=== PATIENT | female | born 1935 | race African-American/Black ===

== ENCOUNTER 2020-10-28 06:57 | Emergency (ER) | payer BC, OTHER ==
[~2020-10-28] VITALS: Ht 162.6 cm; Wt 69.4 kg
[2020-10-28 10:26] LABS: Basophils # (auto) 0 10 ^3/uL (0-0.2); Basophils % (auto) 0.4 % (0.0-2.0); Eosinophils # (auto) 0.2 10 ^3/uL (0-0.8); Eosinophils % (auto) 2.3 % (0.0-7.0); Hematocrit 37.5 % (36.0-46.0); Hemoglobin 12.2 g/dL (12.2-16.2); Lymphocytes # (auto) 1.9 10 ^3/uL (0.4-5.4); Lymphocytes % (auto) 24.5 % (10.0-50.0); Mean Corpuscular Hemoglobin 29.4 pg (28.0-32.0); Mean Corpuscular Hgb Conc. 32.4 g/dL (32.0-36.0); Mean Corpuscular Volume 90.9 fL (80.0-100.0); Monocytes # (auto) 0.6 10 ^3/uL (0-1.3); Monocytes % (auto) 7.4 % (0.0-12.0); Neutrophils % (auto) 65.4 % (37.0-80.0); Nucleated Red Blood Cells % 0.1 %; Platelet Count (auto) 237 10^3/uL (140-450); Red Blood Cells 4.13 10^6/uL (4.0-5.20); Red Cell Distribution Width 13.6 % (11.8-14.3); White Blood Cell 7.7 10^3/uL (4.4-10.8)
[2020-10-28 10:45] LABS: Albumin 3.8 g/dL (3.4-5.0); Anion Gap 2 (5-15); Blood Urea Nitrogen 15 mg/dL (7-18); Calcium 9.9 mg/dL (8.5-10.1); Carbon Dioxide 27 mmol/L (21-32); Chloride 112 mmol/L (98-107); Glucose 97 mg/dL (74-106); Sodium 141 mmol/L (136-145)
[2020-10-28 10:53] LABS: Alanine Aminotransferase 18 U/L (13-56); Alkaline Phosphatase 85 U/L (45-117); Aspartate Aminotransferase 12 U/L (15-37); BUN/Creatinine Ratio 12.6; Bilirubin, Total 0.4 mg/dL (0.2-1.0); GFR African American 55 mL/min; GFR Non-African American 46 mL/min; Total Protein 7.8 g/dL (6.4-8.2)
[2020-10-28 11:01] LABS: INR 1.05 (0.9-1.15); Partial Thromboplastin Time 23.7 sec (23.0-31.2)
[2020-10-28 11:17] LABS: Urine Bacteria FEW /hpf (None Seen); Urine Blood Negative /uL (Negative); Urine Mucus FEW (None Seen); Urine Specific Gravity 1.017 (1.001-1.035); Urine WBC 2 /hpf (0 - 5)
[2020-10-28 12:05] VITALS: BP 133/64
== END 2020-10-28 12:10 | disposition home or self-care (01) ==
LOC: ER 06:57
DX: S09.90XA Unspecified injury of head, initial encounter (principal); I10 Essential (primary) hypertension; N39.0 Urinary tract infection, site not specified; W18.11XA Fall from or off toilet without subsequent striking against object, initial encounter; Y93.89 Activity, other specified; Y92.091 Bathroom in other non-institutional residence as the place of occurrence of the external cause; Y99.8 Other external cause status
CPT/HCPCS: 36415; 70450; 71045; 72192; 80053; 81001; 84484; 85025; 85610; 85730; 93005

== ENCOUNTER 2023-08-05 15:09 | Inpatient (IN) | payer BC ==
[~2023-08-05] VITALS: Ht 160 cm; Wt 62.4 kg
[2023-08-05] MEDS ORDERED: BRIM0.2S17 EACHEYE (17:11)
[2023-08-05] MEDS ORDERED: BIMA0.01 EACHEYE (17:11)
[2023-08-05 17:15] VITALS: BP_SYST 120; BP_SYST 138; BP_DIAS 58; BP_DIAS 60; PULSE 73; RESP 17; TEMP 97.8; TEMP 98; O2SAT 94
[2023-08-05 17:18] VITALS: BP 138/60; PULSE 58; RESP 19; TEMP 98; O2SAT 100
[2023-08-05] MEDS ORDERED: ACETAMINOPHEN 325 MG TAB PO PRN (18:00)
[2023-08-05] MEDS ORDERED: ONDANSETRON HCL 4 MG/2 ML VIAL IV PRN (18:00)
[2023-08-05] MEDS ORDERED: MORPHINE SULFATE INJ 2 MG/ml SYRG IV PRN (18:00)
[2023-08-05] MEDS ORDERED: NITROGLYCERIN 0.4 MG SL TAB SL PRN (18:00)
[2023-08-05 18:20] VITALS: PULSE 68; RESP 18
[2023-08-05 20:00] VITALS: PULSE 64; PULSE 70; RESP 18; TEMP 36.7; O2SAT 95
[2023-08-05 22:00] VITALS: BP 100/48; PULSE 69; RESP 18; TEMP 98; O2SAT 98
[2023-08-06 08:00] VITALS: RESP 18; TEMP 36.7; O2SAT 95
[2023-08-06 09:00] VITALS: BP 97/56; PULSE 78; RESP 16; TEMP 98.7; O2SAT 100
[2023-08-06 09:53] LABS: Basophils # (auto) 0 10 ^3/uL (0-0.2); Basophils % (auto) 0.3 % (0.0-2.0); Eosinophils # (auto) 0.2 10 ^3/uL (0-0.8); Neutrophils # (auto) 3.6 10 ^3/uL (1.6-8.6); Nucleated Red Blood Cells % 0.1 %; Red Cell Distribution Width 14.5 % (11.8-14.3); White Blood Cell 5.9 10^3/uL (4.4-10.8)
[2023-08-06 09:55] LABS: Eosinophils % (auto) 2.8 % (0.0-7.0); Hematocrit 40.3 % (36.0-46.0); Hemoglobin 12.6 g/dL (12.2-16.2); Lymphocytes # (auto) 1.4 10 ^3/uL (0.4-5.4); Lymphocytes % (auto) 24.3 % (10.0-50.0); Mean Corpuscular Hemoglobin 30.1 pg (28.0-32.0); Mean Corpuscular Hgb Conc. 31.4 g/dL (32.0-36.0); Mean Corpuscular Volume 96.1 fL (80.0-100.0); Monocytes # (auto) 0.7 10 ^3/uL (0-1.3); Monocytes % (auto) 11.3 % (0.0-12.0); Neutrophils % (auto) 61.3 % (37.0-80.0); Red Blood Cells 4.19 10^6/uL (4.0-5.20)
[2023-08-06] MEDS ORDERED: FAMOTIDINE (10MG/ML) 2ML VL IV SCH (10:00)
[2023-08-06] MEDS ORDERED: ASPirin-EC 81 mg tab PO SCH (10:00)
[2023-08-06 10:11] LABS: Albumin 4.1 g/dL (3.2-4.8); Alkaline Phosphatase 74 U/L (46-116); Anion Gap 10 (5-15); Aspartate Aminotransferase 12 U/L (13-40); BUN/Creatinine Ratio 10.6 (10.0-20.0); Blood Urea Nitrogen 11 mg/dL (9-23); Calcium 9.7 mg/dL (8.5-10.1); Carbon Dioxide 21 mmol/L (20-30); Chloride 110 mmol/L (98-107); Cholesterol 209 mg/dL (< 200); Glucose 93 mg/dL (74-106); LDL Cholesterol 110 mg/dL (< 100); Potassium 3.9 mmol/L (3.5-5.1); Sodium 141 mmol/L (136-145); Triglycerides 75 mg/dL (< 150)
[2023-08-06 10:12] LABS: Bilirubin, Total 0.6 mg/dL (0.2-1.0); HDL Cholesterol 84 mg/dL (40-59); Total Protein 6.8 g/dL (5.7-8.2)
[2023-08-06 10:16] LABS: Alanine Aminotransferase < 9 U/L (7-40)
[2023-08-06 13:00] VITALS: BP 134/59; PULSE 98; RESP 17; TEMP 98.4; O2SAT 97
[2023-08-06 16:29] VITALS: TEMP 36.9
[2023-08-06] MEDS ORDERED: ATORVASTATIN 20 MG TAB PO SCH (22:00)
== END 2023-08-06 17:30 | disposition home or self-care (01) | DRG 313 ==
LOC: TELE-WESTW 16:48 → UNDOADMIN 16:48 → TELE-WESTW 17:58
PROVIDERS: ADMIT Hospitalist; ATTEND Hospitalist
DX: R07.9 Chest pain, unspecified (principal); E11.22 Type 2 diabetes mellitus with diabetic chronic kidney disease; F03.90 Unspecified dementia, unspecified severity, without behavioral disturbance, psychotic disturbance, mood disturbance, and anxiety; I12.9 Hypertensive chronic kidney disease with stage 1 through stage 4 chronic kidney disease, or unspecified chronic kidney disease; N18.9 Chronic kidney disease, unspecified
CPT/HCPCS: 36415; 80053; 80061; 84484; 85025; 87081; 93306; 97163; G0378; J3490